=== PATIENT | male | born 1990 | race Caucasian/White ===

== ENCOUNTER 2020-07-14 07:37 | Outpatient (CLI) | payer BC, SELFPAY ==
[2020-07-14 20:45] LABS: SARS-CoV-2 RNA PCR Negative
== END 2020-07-14 07:38 | disposition home or self-care (01) ==
LOC: ANHCOVIDDT 07:38
PROVIDERS: Visit Provider Internal Medicine Gastroenterology
DX: Z01.812 Encounter for preprocedural laboratory examination (principal)
CPT/HCPCS: 87635; C9803; U0003

== ENCOUNTER 2020-07-16 01:34 | Day surgery (SDC) | payer BC, SELFPAY ==
[2020-07-14 08:36] VITALS: BMI 34.4
[2020-07-16 09:23] VITALS: BP 136/77; PULSE 70; RESP 16; TEMP 36.1; O2SAT 99
[2020-07-16] MEDS: LACTATED RINGERS 1,000 ML 150 ML IV CONT (09:34)
--- NOTE | 2020-07-16 09:49 | PM.HPGS ---
History of Present Illness History of Present Illness Consent: Risks, benefits, and alternatives have been discussed and questions answered. Patient agrees to proceed with procedure. Chief complaint: GERD Narrative: Juan F Torres is a 30 year old male with gerd, better with nexium am and pepcid [facility] Review of Systems Constitutional: Constitutional: Denies headache(s) and Denies weakness Eyes: Eyes: Denies blurry vision ENT: Reports Normal hearing present, Denies headache(s) and Denies neck pain Cardiovascular: Cardiovascular: Denies chest pain and Denies dyspnea Respiratory: Respiratory: Denies dyspnea Gastrointestinal: Gastrointestinal: Reports no additional gastrointestinal complaints Genitourinary: Genitourinary: Denies dysuria Musculoskeletal: Musculoskeletal: Denies neck pain Integumentary/Breasts: Skin/Breast: Denies dry skin Neurologic: Reports Normal hearing present, Denies headache(s) and Denies weakness Psychiatric: Psychiatric: Denies anxiety Endocrine: Endocrine: Denies change in body appearance Hematologic/Lymphatic: Hematologic/Lymphatic: Denies easy bleeding Allergic/Immunologic: Allergic/Immunologic: Denies urticaria [facility] Past Medical History Medical History (Updated 07/16/20 @ 09:49 by Daniel Perera MD) Asthma GERD (gastroesophageal reflux disease) Marijuana use Obesity (BMI 30-39.9) Social History Social History (Updated 05/30/20 @ 10:28 by Daniel Perera MD) Smoking status: Never smoker Alcohol intake: current Drinks per week: 0 Alcohol use details: MAY HAVE A COUPLE OF DRINKS EVERY COUPLE WEEKS Substance use: current Substance use type: marijuana Other substance usage details: DAILY Last use: 07/14/2020 Living arrangements: with family Spiritual care concerns: No Meds Home Medications and Allergies Home Medications Medication Instructions Recorded Confirmed Type esomeprazole magnesium 20 mg 20 mg PO DAILY 05/30/20 07/16/20 History capsule,delayed release famotidine [Pepcid AC] 10 mg PO HS PRN 07/14/20 07/16/20 History Allergies Allergy/AdvReac Type Severity Reaction Status Date / Time No Known Allergies Allergy Verified 07/16/20 09:19 Vital Signs Vital Signs - 24 hr 07/16/20 09:23 Temperature 97.0 F L Pulse Rate 70 Respiratory Rate 16 Blood Pressure 136/77 Pulse Oximetry 99 Exam Const: General: comfortable and no acute distress HENMT: General nose exam: Normal nares present Eyes: General: appearance normal, both eyes and all related structures Neck: Neck: no JVD Resp: Auscultation: clear to auscultation bilaterally Cardio: Rate: regular rate Rhythm: regular rhythm GI: Inspection: non-distended GI Palp: Yes Soft to palpation Skin: General skin exam: normal color Neuro: General: gait normal Speech: normal speech Extrem: General: normal to inspection Psych: Mental Status: mental status grossly normal Assessment and Plan Assessment and plan (1) GERD (gastroesophageal reflux disease): Code(s): K21.9 - Gastro-esophageal reflux disease without esophagitis Status: Acute Assessment and Plan: will proceed with egd
[2020-07-16] MEDS: BENZOCAINE (*SP) 60 ML SPRAY CAN (HURRICAINE) 1 SPRAY MUCOUS MEM (09:52)
[2020-07-16 10:05] VITALS: BP 103/67; PULSE 73; RESP 17; O2SAT 95
[2020-07-16 10:15] VITALS: BP 107/70; PULSE 73; RESP 16; O2SAT 96
[2020-07-16 10:25] VITALS: BP 142/86; PULSE 72; RESP 17; O2SAT 100
== END 2020-07-16 10:52 | disposition home or self-care (01) ==
PROVIDERS: Visit Provider Internal Medicine Gastroenterology
PROC: 0DJ08ZZ Inspection of Upper Intestinal Tract, Via Natural or Artificial Opening Endoscopic (ICD-10-PCS; CPT 43235; principal; 2020-07-16 10:30)
DX: K21.00 Gastro-esophageal reflux disease with esophagitis, without bleeding (principal); K29.50 Unspecified chronic gastritis without bleeding; K44.9 Diaphragmatic hernia without obstruction or gangrene; J45.909 Unspecified asthma, uncomplicated; F12.90 Cannabis use, unspecified, uncomplicated
CPT/HCPCS: 43239; 88305; J2704; J7120